=== PATIENT | female | born 1990 | race Caucasian/White ===

== ENCOUNTER 2020-12-31 09:32 | Outpatient (CLI) | payer MEDICARE, MEDICAID | END 2020-12-31 09:33 | disposition home or self-care (01) | LOC: CSHLAB 09:32 | PROVIDERS: ATTEND Obstetrics & Gynecology | DX: N80.9 Endometriosis, unspecified (principal); R10.2 Pelvic and perineal pain; Z53.9 Procedure and treatment not carried out, unspecified reason | CPT/HCPCS: 84703; 85027; 86850; 86900; 86901; 87635; U0003; U0005 ==

== ENCOUNTER 2021-01-05 06:00 | Inpatient (IN) | payer MEDICARE, MEDICAID ==
[2020-12-31 10:35] LABS: Hemoglobin 9.3 g/dL (12.0-15.5); Mean Corpuscular HGB CONC 28.7 g/dL (32.0-36.0); Mean Corpuscular Hemoglobin 21.6 pg (27.0-33.0); Mean Corpuscular Volume 75.3 fl (81.6-98.3); Mean Platelet Volume 10.2 fl (7.4-10.4); Platelet Count 336 10x3/uL (150-450); RBC Distribution Width 20.8 % (11.5-14.5); White Blood Cell (WBC) Count 7.3 10x3/uL (3.5-10.5)
[2020-12-31 10:44] LABS: BHCG - Serum Negative (NEGATIVE); Pregs Control Background? CLEAR/WHITE (CLR/WHITE); Pregs Control Bar Appear? YES (CONTROL BAR)
[2020-12-31 17:49] LABS: SARS-CoV-2 PCR by NAA Not Detected (NotDetected)
[2021-01-03 12:24] VITALS: BMI 36.4
[2021-01-05] MEDS ORDERED: Lidocaine 1% MPF 2 ML VIAL ONE (06:21)
[2021-01-05] MEDS ORDERED: Famotidine/PF 20 mg/2ml Vial ONE (06:21)
[2021-01-05] MEDS ORDERED: Gabapentin 300 MG CAP ONE (06:21)
[2021-01-05] MEDS ORDERED: Fentanyl 250 MCG/5 ML VIAL ONE (06:30)
[2021-01-05] MEDS ORDERED: PROPOFOL 20 ML ONE (06:30)
[2021-01-05] MEDS ORDERED: Midazolam HCl 2 mg/2 ml Vial ONE ×2 (06:30→07:23)
[2021-01-05] MEDS ORDERED: Ondansetron PF 4 MG/2 ML Vial ONE (06:31)
[2021-01-05] MEDS ORDERED: Dexamethasone 20 MG/5 ML VIAL ONE (06:31)
[2021-01-05] MEDS ORDERED: Rocuronium Bromide 10 MG/ML (10ML VIAL) ONE (06:31)
[2021-01-05] MEDS ORDERED: Lidocaine 1% PF 5 ML VIAL ONE (06:31)
[2021-01-05] MEDS ORDERED: Ketorolac Tromethamine 30 MG/ML VIAL ONE (06:31)
[2021-01-05] MEDS ORDERED: Glycopyrrolate 0.2 MG/ML 5 ML SYRINGE ONE (06:33)
[2021-01-05] MEDS ORDERED: Iopamidol 15 ML ONE (06:38)
[2021-01-05] MEDS ORDERED: Bupivacaine HCl 0.5%/Epinephrine 1:200,000/PF 30 ml Vial ONE (06:39)
[2021-01-05] MEDS ORDERED: Levofloxacin 500 mg/D5W 100 ml Premix Bag ONE (07:28)
[2021-01-05] MEDS ORDERED: ePHEDrine 50 MG/ML VIAL ONE (09:00)
[2021-01-05] MEDS ORDERED: Fentanyl 100 MCG/2 ML VIAL ONE ×3 (09:26→10:30)
[2021-01-05] MEDS ORDERED: Bisacodyl 10 MG SUPP PR PRN (09:49)
[2021-01-05] MEDS ORDERED: Ondansetron PF 4 MG/2 ML Vial IVP PRN (09:49)
[2021-01-05] MEDS ORDERED: HYDROcodone/Acetaminophen 5/325 mg Tablet PO PRN ×2 (09:49)
[2021-01-05] MEDS ORDERED: Simethicone Chewable 80 MG TAB PO PRN (09:49)
[2021-01-05] MEDS ORDERED: diphenhydrAMINE 25 MG CAP PO PRN (09:49)
[2021-01-05] MEDS ORDERED: Promethazine HCl 25 MG/ML VIAL IM PRN (09:49)
[2021-01-05] MEDS ORDERED: tiZANidine HCl 4 MG TAB PO PRN (09:51)
[2021-01-05] MEDS ORDERED: Ventolin HFA Inhaler 60 PUFF INHALER INH PRN (09:51)
[2021-01-05] MEDS ORDERED: Fioricet 325/50/40 mg Tablet PO PRN (09:51)
[2021-01-05] MEDS ORDERED: Prazosin HCl 1 MG CAP PO PRN (09:51)
[2021-01-05] MEDS: Sodium Chloride 0.9% 1,000 ML IV SCH ×2 (12:14→16:19)
[2021-01-05] MEDS ORDERED: SUVOREXANT 15 MG PO SCH (21:00)
[2021-01-05] MEDS ORDERED: SUVOREXANT PO SCH (21:00)
[2021-01-05] MEDS: Zolpidem Tartrate 5 MG TAB PO PRN (21:08)
[2021-01-05] MEDS: Gabapentin 300 MG CAP PO SCH (21:09)
[2021-01-05] MEDS: Topiramate 100 MG TAB PO SCH (21:13)
[2021-01-05] MEDS ORDERED: fentaNYL Citrate/PF 50 MCG/ML (20ML VIAL) ONE (23:55)
[2021-01-06] MEDS: fentaNYL Citrate/PF 1,000 MCG in Sodium Chloride 0.9% 30 ML IV PRN ×2 (00:08→16:41)
[2021-01-06] MEDS: Mometasone/Formoterol 60 PUFF AER INH SCH ×3 (00:34→20:10)
[2021-01-06] MEDS: Sodium Chloride 0.9% 1,000 ML IV SCH ×3 (05:57→16:00)
[2021-01-06 07:47] LABS: Hemoglobin 8.9 g/dL (12.0-15.5); Mean Corpuscular HGB CONC 28.5 g/dL (32.0-36.0); Mean Corpuscular Hemoglobin 21.2 pg (27.0-33.0); Mean Corpuscular Volume 74.5 fl (81.6-98.3); Mean Platelet Volume 10.4 fl (7.4-10.4); Platelet Count 317 10x3/uL (150-450); RBC Distribution Width 20.3 % (11.5-14.5); Red Blood Cell (RBC) Count 4.19 10x6/uL (3.90-5.03); White Blood Cell (WBC) Count 10.3 10x3/uL (3.5-10.5)
[2021-01-06] MEDS: FLUoxetine HCl 20 MG CAP PO SCH (08:57)
[2021-01-06] MEDS: Gabapentin 300 MG CAP PO SCH ×2 (08:58→21:15)
[2021-01-06] MEDS: Topiramate 100 MG TAB PO SCH ×2 (08:59→21:15)
[2021-01-06] MEDS ORDERED: Aripiprazole 10 MG TAB PO SCH (09:00)
[2021-01-06] MEDS ORDERED: Aripiprazole 2 MG TAB PO SCH (09:00)
[2021-01-06] MEDS ORDERED: Fioricet 325/50/40 mg Tablet PO SCH (09:30)
[2021-01-06] MEDS ORDERED: Albuterol Sulfate 2.5 mg/3 ml Neb NEB PRN (09:43)
[2021-01-06] MEDS: Acetaminophen 500 MG TAB PO SCH ×3 (10:26→21:16)
[2021-01-06] MEDS: Zolpidem Tartrate 5 MG TAB PO PRN (21:15)
[2021-01-07] MEDS: Sodium Chloride 0.9% 1,000 ML IV SCH ×2 (00:13→10:15)
[2021-01-07] MEDS: Mometasone/Formoterol 60 PUFF AER INH SCH ×2 (07:13→19:09)
[2021-01-07] MEDS: Acetaminophen 500 MG TAB PO SCH ×2 (07:35→10:15)
[2021-01-07] MEDS: Gabapentin 300 MG CAP PO SCH ×2 (08:12→21:45)
[2021-01-07] MEDS: Topiramate 100 MG TAB PO SCH ×2 (08:12→21:46)
[2021-01-07] MEDS: FLUoxetine HCl 20 MG CAP PO SCH (08:20)
[2021-01-07] MEDS: Aripiprazole 10 MG TAB PO SCH (08:21)
[2021-01-07] MEDS ORDERED: HYDROcodone/Acetaminophen 5/325 mg Tablet PO PRN (09:49)
[2021-01-07] MEDS: HYDROcodone/Acetaminophen 5/325 mg Tablet PO PRN ×3 (10:14→18:25)
[2021-01-07] MEDS ORDERED: HYDROcodone/Acetaminophen 10/325 mg Tablet PO PRN (20:21)
[2021-01-07] MEDS: HYDROcodone/Acetaminophen 10/325 mg Tablet PO PRN (22:34)
[2021-01-08] MEDS: HYDROcodone/Acetaminophen 10/325 mg Tablet PO PRN ×2 (05:05→09:12)
[2021-01-08] MEDS: Mometasone/Formoterol 60 PUFF AER INH SCH (07:20)
[2021-01-08] MEDS: FLUoxetine HCl 20 MG CAP PO SCH (08:34)
[2021-01-08] MEDS: Topiramate 100 MG TAB PO SCH (08:35)
[2021-01-08] MEDS: Aripiprazole 10 MG TAB PO SCH (08:36)
[2021-01-08] MEDS: Gabapentin 300 MG CAP PO SCH (08:37)
[2021-01-08 10:19] VITALS: BP 108/61; TEMP 98.6
== END 2021-01-08 10:00 | disposition home or self-care (01) | DRG 742 ==
LOC: CSHSDC 06:00 → CSHPP 09:48 → OBSVTOIN 09:49 → UNDOADMOB 10:00 → CSHPP 10:00
PROVIDERS: ADMIT Obstetrics & Gynecology; ATTEND Obstetrics & Gynecology
PROC: 0UT90ZZ Resection of Uterus, Open Approach (ICD-10-PCS; principal; 2021-01-05)
PROC: 0UT70ZZ Resection of Bilateral Fallopian Tubes, Open Approach (ICD-10-PCS; 2021-01-05)
PROC: 0T778DZ Dilation of Left Ureter with Intraluminal Device, Via Natural or Artificial Opening Endoscopic (ICD-10-PCS; 2021-01-05)
PROC: BT1FZZZ Fluoroscopy of Left Kidney, Ureter and Bladder (ICD-10-PCS; 2021-01-05)
DX: N80.0 Endometriosis of uterus (principal); Q60.0 Renal agenesis, unilateral; N94.6 Dysmenorrhea, unspecified; Z20.822 Contact with and (suspected) exposure to COVID-19; K66.0 Peritoneal adhesions (postprocedural) (postinfection); Z88.0 Allergy status to penicillin; Z88.5 Allergy status to narcotic agent; Z79.899 Other long term (current) drug therapy; Z87.891 Personal history of nicotine dependence; G40.909 Epilepsy, unspecified, not intractable, without status epilepticus
CPT/HCPCS: 36415; 84703; 85027; 86850; 86900; 86901; 87635; 88307; 94664; C2625; J1100; J1885; J1956; J2250; J2405; J2704; J3010; J3490; Q9967; S0028; U0003; U0005

== ENCOUNTER 2021-01-18 13:28 | Emergency (ER) | payer MEDICARE, MEDICAID ==
[2021-01-18] MEDS ORDERED: Ondansetron PF 4 MG/2 ML Vial ONE (14:16)
[2021-01-18] MEDS ORDERED: Morphine 4 MG/ML VIAL ONE (14:16)
[2021-01-18 15:03] LABS: Bilirubin Neg (Negative); Blood, Urine 250 (Negative); Clarity Slightly Cloudy (Clear); Glucose, Urine (Dipstick) Normal (Negative); Ketone, Urine 15 mg/dL (Negative); Leukocyte 25 (Negative); Nitrite Negative (Negative); Protein, Urine (Dipstick) 15 mg/dl (Neg-Trace); Specific Gravity, Urine 1.005 (1.002-1.036); Urobilinogen Normal mg/dL (Less than 2)
[2021-01-18 15:04] LABS: #Basophils 0.1 10x3/uL (0.0-0.2); #Eosinphils 0.3 10x3/uL (0.0-0.5); #Monocytes 0.5 10x3/uL (0.0-1.1); #Neutrophils 7.3 10x3/uL (1.5-8.4); %Basophils 0.6 % (0.0-2.0); %Lymphocytes 20.3 % (18.0-47.0); %Monocytes 5.2 % (0.0-10.0); %Neutrophils 70.3 % (40.0-75.0); Hemoglobin 8.7 g/dL (12.0-15.5); Mean Corpuscular HGB CONC 28.8 g/dL (32.0-36.0); Mean Corpuscular Hemoglobin 21.2 pg (27.0-33.0); Mean Corpuscular Volume 73.5 fl (81.6-98.3); Platelet Count 479 10x3/uL (150-450); RBC Distribution Width 20.5 % (11.5-14.5); Red Blood Cell (RBC) Count 4.11 10x6/uL (3.90-5.03); White Blood Cell (WBC) Count 10.3 10x3/uL (3.5-10.5)
[2021-01-18 15:06] LABS: ALT (SGPT) 9 U/L (8-55); AST (SGOT) 6 U/L (5-34); Albumin 3.5 g/dL (3.5-5.0); Alkaline Phosphatase 87 U/L (40-110); Anion Gap 15 mmol/L (10-20); BUN (Urea Nitrogen) 10 mg/dL (7.0-18.7); Bilirubin, Total 0.2 mg/dL (0.2-1.2); Calc. Creatinine Clearance 0 mL/min (70-130); Calcium 8.7 mg/dL (7.8-10.44); Carbon Dioxide 23 mmol/L (22-29); Chloride 106 mmol/L (98-107); Globulin 3.1 g/dL (2.4-3.5); Glucose 87 mg/dL (70-105); Potassium 3.7 mmol/L (3.5-5.1); Protein, Total 6.6 g/dL (6.0-8.3); Sodium 140 mmol/L (136-145)
[2021-01-18] MEDS ORDERED: Fentanyl 100 MCG/2 ML VIAL ONE ×2 (15:23→16:46)
[2021-01-18 15:35] LABS: Bacteria/HPF 2+ HPF (None Seen); RBC/HPF 0-3 HPF (0-3); WBC/HPF 0-3 HPF (0-3)
[2021-01-18] MEDS ORDERED: Lorazepam 2 MG/ML VIAL ONE (16:15)
== END 2021-01-18 16:57 | disposition home or self-care (01) ==
LOC: CSHERS 13:28
DX: G89.18 Other acute postprocedural pain (principal); R10.12 Left upper quadrant pain; D72.829 Elevated white blood cell count, unspecified; J45.909 Unspecified asthma, uncomplicated; Z87.891 Personal history of nicotine dependence
CPT/HCPCS: 36415; 80053; 81003; 81015; 83605; 85025; 86850; 86900; 86901; 87086; 94760; 96374; 96375; 96376; J2060; J2270; J2405; J3010

== ENCOUNTER 2021-07-09 08:50 | Emergency (ER) | payer MEDICARE, MEDICAID | END 2021-07-09 10:00 | disposition home or self-care (01) | LOC: CSHERS 08:50 | DX: T82.9XXA Unspecified complication of cardiac and vascular prosthetic device, implant and graft, initial encounter (principal); R10.9 Unspecified abdominal pain; G89.29 Other chronic pain; J45.909 Unspecified asthma, uncomplicated | CPT/HCPCS: 99283 ==

== ENCOUNTER 2021-08-02 21:18 | Emergency (ER) | payer MEDICARE, MEDICAID ==
[2021-08-02 21:51] LABS: Bilirubin Neg (Negative); Blood, Urine Negative (Negative); Clarity Clear (Clear); Glucose, Urine (Dipstick) Normal (Negative); Ketone, Urine Negative (Negative); Leukocyte Negative (Negative); Nitrite Negative (Negative); Protein, Urine (Dipstick) Negative (Neg-Trace); Urobilinogen Normal mg/dL (Less than 2)
[2021-08-02 21:54] LABS: Pregnancy Test - Urine (BHCG) Negative (Negative); Pregu Control Background? CLEAR/WHITE (CLR/WHITE); Pregu Control Bar Appear? YES (CONTROL BAR)
[2021-08-02] MEDS ORDERED: Ondansetron ODT 4 MG TAB ONE (22:04)
[2021-08-02 22:12] LABS: #Basophils 0.1 10x3/uL (0.0-0.2); #Eosinphils 0.4 10x3/uL (0.0-0.5); #Monocytes 0.9 10x3/uL (0.0-1.1); #Neutrophils 5.1 10x3/uL (1.5-8.4); %Basophils 0.7 % (0.0-2.0); %Eosinophils 3.9 % (0.0-6.0); %Monocytes 8.9 % (0.0-10.0); %Neutrophils 52.3 % (40.0-75.0); Hemoglobin 8.8 g/dL (12.0-15.5); Mean Corpuscular HGB CONC 28.9 g/dL (32.0-36.0); Mean Corpuscular Hemoglobin 21.8 pg (27.0-33.0); Mean Corpuscular Volume 75.2 fl (81.6-98.3); Mean Platelet Volume 10.1 fl (7.4-10.4); Platelet Count 313 10x3/uL (150-450); Red Blood Cell (RBC) Count 4.04 10x6/uL (3.90-5.03); White Blood Cell (WBC) Count 9.7 10x3/uL (3.5-10.5)
[2021-08-02 22:22] LABS: ALT (SGPT) 7 U/L (8-55); AST (SGOT) 8 U/L (5-34); Albumin 3.5 g/dL (3.5-5.0); Alkaline Phosphatase 56 U/L (40-110); Anion Gap 13 mmol/L (10-20); BUN (Urea Nitrogen) 12 mg/dL (7.0-18.7); Bilirubin, Total 0.2 mg/dL (0.2-1.2); Calc. Creatinine Clearance 0 mL/min (70-130); Calcium 9.1 mg/dL (7.8-10.44); Carbon Dioxide 27 mmol/L (22-29); Chloride 103 mmol/L (98-107); Globulin 2.8 g/dL (2.4-3.5); Glucose 95 mg/dL (70-105); Potassium 3.9 mmol/L (3.5-5.1); Protein, Total 6.3 g/dL (6.0-8.3); Sodium 139 mmol/L (136-145)
[2021-08-02 22:33] LABS: Hypochromia SLIGHT = 6-15 cells (100X) (0-5/hpf); Platelet Morphology Comment Appears Adequate; Polychromasia SLIGHT = 2-3 cells (100X) (0-2/hpf)
== END 2021-08-02 22:52 | disposition home or self-care (01) ==
LOC: CSHERS 21:18
DX: R10.9 Unspecified abdominal pain (principal); R11.2 Nausea with vomiting, unspecified; R30.0 Dysuria; J45.909 Unspecified asthma, uncomplicated; Z79.899 Other long term (current) drug therapy
CPT/HCPCS: 36415; 74176; 80053; 81003; 81025; 85025; 96372; J0500; Q0162

== ENCOUNTER 2021-08-10 21:56 | Emergency (ER) | payer MEDICARE, MEDICAID ==
[2021-08-10] MEDS ORDERED: Morphine 4 MG/ML VIAL ONE (23:33)
[2021-08-10] MEDS ORDERED: Diazepam 5 MG TAB ONE (23:34)
== END 2021-08-10 23:56 | disposition home or self-care (01) ==
LOC: CSHERS 21:56
DX: M54.9 Dorsalgia, unspecified (principal); J45.909 Unspecified asthma, uncomplicated
CPT/HCPCS: 96374; J2270

== ENCOUNTER 2021-09-17 04:40 | Emergency (ER) | payer MEDICARE, OTHER ==
[2021-09-17] MEDS ORDERED: Morphine 4 MG/ML VIAL ONE ×2 (05:57→07:29)
[2021-09-17] MEDS ORDERED: Ondansetron PF 4 MG/2 ML Vial ONE (05:58)
[2021-09-17] MEDS ORDERED: Pantoprazole 40 MG VIAL ONE (05:58)
[2021-09-17] MEDS ORDERED: Famotidine/PF 20 mg/2ml Vial ONE (05:59)
[2021-09-17 06:32] LABS: #Basophils 0.1 10x3/uL (0.0-0.2); #Eosinphils 0.2 10x3/uL (0.0-0.5); #Monocytes 0.5 10x3/uL (0.0-1.1); #Neutrophils 2.4 10x3/uL (1.5-8.4); %Basophils 1.3 % (0.0-2.0); %Eosinophils 3.9 % (0.0-6.0); %Lymphocytes 42.2 % (18.0-47.0); %Monocytes 9.3 % (0.0-10.0); %Neutrophils 43.1 % (40.0-75.0); Hemoglobin 9.5 g/dL (12.0-15.5); Mean Corpuscular HGB CONC 28.9 g/dL (32.0-36.0); Mean Corpuscular Volume 72.8 fl (81.6-98.3); Mean Platelet Volume 9.6 fl (7.4-10.4); Platelet Count 281 10x3/uL (150-450); RBC Distribution Width 17.3 % (11.5-14.5); Red Blood Cell (RBC) Count 4.52 10x6/uL (3.90-5.03); White Blood Cell (WBC) Count 5.6 10x3/uL (3.5-10.5)
[2021-09-17 06:33] LABS: ALT (SGPT) 15 U/L (8-55); AST (SGOT) 17 U/L (5-34); Albumin 3.6 g/dL (3.5-5.0); Alkaline Phosphatase 86 U/L (40-110); Anion Gap 16 mmol/L (10-20); BUN (Urea Nitrogen) 12 mg/dL (7.0-18.7); Bilirubin, Total 0.3 mg/dL (0.2-1.2); Calc. Creatinine Clearance 0 mL/min (70-130); Calcium 9.8 mg/dL (7.8-10.44); Carbon Dioxide 26 mmol/L (22-29); Chloride 104 mmol/L (98-107); Globulin 3.2 g/dL (2.4-3.5); Glucose 93 mg/dL (70-105); Lipase 29 U/L (8-78); Potassium 3.7 mmol/L (3.5-5.1); Protein, Total 6.8 g/dL (6.0-8.3); Sodium 142 mmol/L (136-145)
[2021-09-17 06:45] LABS: BHCG - Serum Negative (NEGATIVE); Pregs Control Background? CLEAR/WHITE (CLR/WHITE); Pregs Control Bar Appear? YES (CONTROL BAR)
[2021-09-17 06:53] LABS: Hypochromia SLIGHT = 6-15 cells (100X) (0-5/hpf); Platelet Morphology Comment Appears Adequate
== END 2021-09-17 07:49 | disposition home or self-care (01) ==
LOC: CSHERS 04:40
DX: R10.13 Epigastric pain (principal); J45.909 Unspecified asthma, uncomplicated
CPT/HCPCS: 80053; 83690; 84703; 85025; 96374; 96375; 96376; C9113; J1642; J2270; J2405; S0028

== ENCOUNTER 2022-10-17 20:19 | Inpatient (IN) | payer MEDICARE, SELFPAY ==
[2022-10-17 20:48] VITALS: BMI 28.0
[2022-10-17] MEDS ORDERED: Senokot S 8.6-50 MG TAB PO PRN (21:54)
[2022-10-17] MEDS ORDERED: Bisacodyl 10 MG SUPP PR PRN (21:54)
[2022-10-17] MEDS ORDERED: Pantoprazole 40 MG VIAL IVP SCH (22:00)
[2022-10-17] MEDS ORDERED: Morphine 2 MG/ML VIAL SLOW IVP PRN (22:10)
[2022-10-17] MEDS ORDERED: SUMAtriptan Succinate 50 MG TAB PO PRN (22:13)
[2022-10-17] MEDS ORDERED: FLUoxetine HCl 20 MG CAP PO SCH (22:15)
[2022-10-17] MEDS: Morphine 4 MG/ML VIAL SLOW IVP PRN (22:18)
[2022-10-17] MEDS: Sucralfate 1 GM TAB PO SCH (22:23)
[2022-10-17] MEDS: Ondansetron PF 4 MG/2 ML Vial IVP PRN (22:28)
[2022-10-17 22:55] LABS: Hemoglobin 7.9 g/dL (12.0-15.5)
[2022-10-17 23:08] LABS: Magnesium 1.4 mg/dL (1.6-2.6)
[2022-10-17] MEDS: Potassium Chloride 20 MEQ in Lactated Ringer's 1,000 ML IV SCH (23:26)
[2022-10-18] MEDS ORDERED: FLU VACC QS2022-23(6MOS UP)/PF 60 MCG/0.5 ML SYRINGE IM ONE (01:45)
[2022-10-18] MEDS: Morphine 4 MG/ML VIAL SLOW IVP PRN ×5 (04:06→22:05)
[2022-10-18] MEDS: Sucralfate 1 GM TAB PO SCH ×5 (04:06→21:44)
[2022-10-18 05:39] LABS: Anion Gap 11 mmol/L (10-20); BUN (Urea Nitrogen) 5 mg/dL (7.0-18.7); Calc. Creatinine Clearance 92 mL/min (70-130); Calcium 8.1 mg/dL (7.8-10.44); Carbon Dioxide 25 mmol/L (22-29); Chloride 111 mmol/L (98-107); Estimated GFR 70; Glucose 81 mg/dL (70-105); Potassium 3.8 mmol/L (3.5-5.1); Sodium 143 mmol/L (136-145)
[2022-10-18 05:40] LABS: #Eosinphils 0.3 10x3/uL (0.0-0.5); #Monocytes 0.5 10x3/uL (0.0-1.1); #Neutrophils 1.5 10x3/uL (1.5-8.4); %Basophils 0.7 % (0.0-2.0); %Eosinophils 6.1 % (0.0-6.0); %Lymphocytes 48.7 % (18.0-47.0); %Monocytes 10.3 % (0.0-10.0); Hemoglobin 8.1 g/dL (12.0-15.5); Mean Corpuscular HGB CONC 29.5 g/dL (32.0-36.0); Mean Corpuscular Hemoglobin 21.7 pg (27.0-33.0); Mean Corpuscular Volume 73.5 fl (81.6-98.3); Platelet Count 225 10x3/uL (150-450); Red Blood Cell (RBC) Count 3.74 10x6/uL (3.90-5.03); White Blood Cell (WBC) Count 4.5 10x3/uL (3.5-10.5)
[2022-10-18 06:10] LABS: Anisocytosis SLIGHT = 6-15 cells (100X) (0-5/hpf); Hypochromia SLIGHT = 6-15 cells (100X) (0-5/hpf); Platelet Morphology Comment Appears Adequate
[2022-10-18] MEDS: Pantoprazole 40 MG VIAL IVP SCH ×2 (08:51→21:42)
[2022-10-18] MEDS: Sertraline 100 MG TAB PO SCH (08:52)
[2022-10-18] MEDS: Aripiprazole 10 MG TAB PO SCH ×2 (08:52→21:00)
[2022-10-18] MEDS: Topiramate 25 MG TAB PO SCH ×2 (08:52→21:00)
[2022-10-18] MEDS: FLUoxetine HCl 20 MG CAP PO SCH (08:52)
[2022-10-18] MEDS ORDERED: Magnesium 2 GM/50 ML(in water) 2 GM in Premix Bag 1 BAG IVPB SCH (10:00)
[2022-10-18] MEDS: Potassium Chloride 20 MEQ in Lactated Ringer's 1,000 ML IV SCH (10:12)
[2022-10-19] MEDS: Potassium Chloride 20 MEQ in Lactated Ringer's 1,000 ML IV SCH ×3 (01:18→16:41)
[2022-10-19] MEDS: Sucralfate 1 GM TAB PO SCH ×4 (04:30→22:08)
[2022-10-19] MEDS: Morphine 4 MG/ML VIAL SLOW IVP PRN ×5 (05:02→21:27)
[2022-10-19] MEDS ORDERED: Pantoprazole 40 MG VIAL ONE (08:36)
[2022-10-19] MEDS: Topiramate 25 MG TAB PO SCH ×2 (09:10→21:27)
[2022-10-19] MEDS: FLUoxetine HCl 20 MG CAP PO SCH (09:11)
[2022-10-19] MEDS: Pantoprazole 40 MG VIAL IVP SCH ×2 (09:15→21:27)
[2022-10-19] MEDS: Sertraline 100 MG TAB PO SCH (09:15)
[2022-10-19] MEDS: Aripiprazole 10 MG TAB PO SCH ×2 (09:16→21:27)
[2022-10-19] MEDS ORDERED: PROPOFOL 20 ML ONE ×2 (15:25→15:36)
[2022-10-19] MEDS: Ondansetron PF 4 MG/2 ML Vial IVP PRN (18:37)
[2022-10-20] MEDS: Sucralfate 1 GM TAB PO SCH ×3 (04:07→15:10)
[2022-10-20] MEDS: Morphine 4 MG/ML VIAL SLOW IVP PRN ×3 (04:07→13:14)
[2022-10-20] MEDS: Potassium Chloride 20 MEQ in Lactated Ringer's 1,000 ML IV SCH ×3 (07:34→15:09)
[2022-10-20] MEDS: Sertraline 100 MG TAB PO SCH (09:56)
[2022-10-20] MEDS: Aripiprazole 10 MG TAB PO SCH (09:56)
[2022-10-20] MEDS: Pantoprazole 40 MG VIAL IVP SCH (09:56)
[2022-10-20] MEDS: Topiramate 25 MG TAB PO SCH (09:56)
[2022-10-20] MEDS: FLUoxetine HCl 20 MG CAP PO SCH (09:56)
[2022-10-20] MEDS: Ondansetron PF 4 MG/2 ML Vial IVP PRN (13:14)
[2022-10-20 16:36] VITALS: BP 119/76; TEMP 97.9
[2022-10-20] MEDS ORDERED: Lansoprazole 3 MG/ML ORAL SUSPENSION PER TUBE SCH (21:00)
== END 2022-10-20 18:00 | disposition home or self-care (01) | DRG 381 ==
LOC: CSHTELE 20:19 → INTOOBSV 20:19 → OBSVTOIN 10-19 16:35
PROVIDERS: ADMIT Internal Medicine; ATTEND Internal Medicine
PROC: 0D768ZZ Dilation of Stomach, Via Natural or Artificial Opening Endoscopic (ICD-10-PCS; principal; 2022-10-19)
PROC: 0D7A8ZZ Dilation of Jejunum, Via Natural or Artificial Opening Endoscopic (ICD-10-PCS; 2022-10-19)
DX: K28.9 Gastrojejunal ulcer, unspecified as acute or chronic, without hemorrhage or perforation (principal); K91.89 Other postprocedural complications and disorders of digestive system; G89.4 Chronic pain syndrome; F43.10 Post-traumatic stress disorder, unspecified; J45.909 Unspecified asthma, uncomplicated; G40.909 Epilepsy, unspecified, not intractable, without status epilepticus; F11.11 Opioid abuse, in remission; D50.9 Iron deficiency anemia, unspecified; K31.89 Other diseases of stomach and duodenum; Z90.49 Acquired absence of other specified parts of digestive tract; Z90.5 Acquired absence of kidney; Z98.84 Bariatric surgery status; Z98.890 Other specified postprocedural states; Z90.710 Acquired absence of both cervix and uterus; Z88.8 Allergy status to other drugs, medicaments and biological substances; Z88.0 Allergy status to penicillin; Z88.1 Allergy status to other antibiotic agents; Z98.2 Presence of cerebrospinal fluid drainage device; Z88.6 Allergy status to analgesic agent; Z79.899 Other long term (current) drug therapy; Z98.51 Tubal ligation status; Z87.11 Personal history of peptic ulcer disease; Z91.018 Allergy to other foods; F32.A Depression, unspecified; Y83.8 Other surgical procedures as the cause of abnormal reaction of the patient, or of later complication, without mention of misadventure at the time of the procedure
CPT/HCPCS: 74240; 80048; 83735; 85025; 86850; 86900; 86901; 96374; 96375; 96376; C9113; G0378; J2270; J2405; J2704; J3475; J3480; J7120

== ENCOUNTER 2022-10-24 15:09 | Emergency (ER) | payer MEDICARE, OTHER, SELFPAY ==
[2022-10-24 16:21] LABS: #Eosinphils 0.1 10x3/uL (0.0-0.5); #Monocytes 0.4 10x3/uL (0.0-1.1); #Neutrophils 4.8 10x3/uL (1.5-8.4); %Basophils 0.4 % (0.0-2.0); %Eosinophils 0.7 % (0.0-6.0); %Lymphocytes 28.9 % (18.0-47.0); %Monocytes 5.3 % (0.0-10.0); %Neutrophils 64.4 % (40.0-75.0); Hemoglobin 9.6 g/dL (12.0-15.5); Mean Corpuscular HGB CONC 29.5 g/dL (32.0-36.0); Mean Corpuscular Hemoglobin 21.8 pg (27.0-33.0); Mean Corpuscular Volume 73.9 fl (81.6-98.3); Mean Platelet Volume 10.2 fl (7.4-10.4); Platelet Count 307 10x3/uL (150-450); RBC Distribution Width 23.9 % (11.5-14.5); White Blood Cell (WBC) Count 7.4 10x3/uL (3.5-10.5)
[2022-10-24 17:16] LABS: ALT (SGPT) 14 U/L (8-55); AST (SGOT) 16 U/L (5-34); Albumin 3.1 g/dL (3.5-5.0); Alkaline Phosphatase 98 U/L (40-110); Anion Gap 15 mmol/L (10-20); BUN (Urea Nitrogen) 23 mg/dL (7.0-18.7); Bilirubin, Total 0.1 mg/dL (0.2-1.2); Calc. Creatinine Clearance 0 mL/min (70-130); Calcium 8.4 mg/dL (7.8-10.44); Carbon Dioxide 20 mmol/L (22-29); Chloride 110 mmol/L (98-107); Estimated GFR 83; Globulin 2.8 g/dL (2.4-3.5); Glucose 86 mg/dL (70-105); Potassium 4.6 mmol/L (3.5-5.1); Protein, Total 5.9 g/dL (6.0-8.3); Sodium 140 mmol/L (136-145)
[2022-10-24] MEDS ORDERED: Haloperidol Lactate 5 MG/ML VIAL ONE (17:25)
[2022-10-24] MEDS ORDERED: Lorazepam 2 MG/ML VIAL ONE (17:26)
== END 2022-10-24 19:36 | disposition home or self-care (01) ==
LOC: CSHERS 15:09
DX: G43.909 Migraine, unspecified, not intractable, without status migrainosus (principal); Z87.891 Personal history of nicotine dependence
CPT/HCPCS: 70450; 80053; 84146; 85025; 96374; 96375; J1630; J1642; J2060

== ENCOUNTER 2023-02-25 07:40 | Inpatient (IN) | payer MEDICARE, MEDICAID ==
[2023-02-25] MEDS ORDERED: Ondansetron PF 4 MG/2 ML Vial IVP PRN (09:01)
[2023-02-25] MEDS: cefTRIAXone\\ROCEPHIN 1 GM in Sodium Chloride 0.9% 100 ML IVPB SCH (09:39)
[2023-02-25] MEDS: Pantoprazole 40 MG VIAL IVP SCH ×2 (09:40→21:50)
[2023-02-25] MEDS: Sodium Chloride 0.9% 1,000 ML IV SCH ×2 (09:40→18:45)
[2023-02-25] MEDS: Morphine 4 MG/ML VIAL SLOW IVP PRN ×2 (10:47→16:24)
[2023-02-25 13:12] VITALS: BMI 28.8
[2023-02-25 17:20] LABS: #Eosinphils 0.2 10x3/uL (0.0-0.5); #Monocytes 0.8 10x3/uL (0.0-1.1); #Neutrophils 3.1 10x3/uL (1.5-8.4); %Basophils 0.6 % (0.0-2.0); %Eosinophils 2.8 % (0.0-6.0); %Lymphocytes 33.8 % (18.0-47.0); %Monocytes 12.2 % (0.0-10.0); %Neutrophils 50.4 % (40.0-75.0); Hemoglobin 8.4 g/dL (12.0-15.5); Mean Corpuscular HGB CONC 28.4 g/dL (32.0-36.0); Mean Corpuscular Hemoglobin 19.8 pg (27.0-33.0); Mean Corpuscular Volume 69.8 fl (81.6-98.3); Mean Platelet Volume 9.8 fl (7.4-10.4); Platelet Count 297 10x3/uL (150-450); RBC Distribution Width 19.3 % (11.5-14.5); Red Blood Cell (RBC) Count 4.24 10x6/uL (3.90-5.03); White Blood Cell (WBC) Count 6.2 10x3/uL (3.5-10.5)
[2023-02-25 17:26] LABS: ALT (SGPT) 38 U/L (8-55); AST (SGOT) 42 U/L (5-34); Albumin 3.3 g/dL (3.5-5.0); Alkaline Phosphatase 90 U/L (40-110); Anion Gap 11 mmol/L (10-20); BUN (Urea Nitrogen) 9 mg/dL (7.0-18.7); Bilirubin, Total 0.2 mg/dL (0.2-1.2); Calc. Creatinine Clearance 107 mL/min (70-130); Calcium 8.3 mg/dL (7.8-10.44); Carbon Dioxide 25 mmol/L (22-29); Chloride 109 mmol/L (98-107); Estimated GFR 80; Globulin 2.4 g/dL (2.4-3.5); Glucose 89 mg/dL (70-105); Potassium 4.3 mmol/L (3.5-5.1); Protein, Total 5.7 g/dL (6.0-8.3); Sodium 141 mmol/L (136-145)
[2023-02-25 19:16] LABS: Anisocytosis SLIGHT = 6-15 cells (100X) (0-5/hpf); Elliptocytes SLIGHT = 2-5 cells (100X) (0-1/hpf); Hypochromia SLIGHT = 6-15 cells (100X) (0-5/hpf); Microcytosis SLIGHT = 6-15 cells (100X) (0-5/hpf); Platelet Adequacy Comment Appears Adequate
[2023-02-26] MEDS: Sodium Chloride 0.9% 1,000 ML IV SCH ×3 (02:27→17:50)
[2023-02-26 04:20] LABS: #Eosinphils 0.2 10x3/uL (0.0-0.5); #Monocytes 0.6 10x3/uL (0.0-1.1); #Neutrophils 3.1 10x3/uL (1.5-8.4); %Basophils 0.7 % (0.0-2.0); %Eosinophils 3.9 % (0.0-6.0); %Lymphocytes 26.3 % (18.0-47.0); %Monocytes 10.8 % (0.0-10.0); %Neutrophils 57.9 % (40.0-75.0); Hemoglobin 8.3 g/dL (12.0-15.5); Mean Corpuscular HGB CONC 28.5 g/dL (32.0-36.0); Mean Corpuscular Hemoglobin 19.9 pg (27.0-33.0); Mean Corpuscular Volume 69.8 fl (81.6-98.3); Mean Platelet Volume 10.3 fl (7.4-10.4); Platelet Count 304 10x3/uL (150-450); RBC Distribution Width 18.9 % (11.5-14.5); Red Blood Cell (RBC) Count 4.17 10x6/uL (3.90-5.03); White Blood Cell (WBC) Count 5.4 10x3/uL (3.5-10.5)
[2023-02-26 04:45] LABS: Anion Gap 13 mmol/L (10-20); BUN (Urea Nitrogen) 7 mg/dL (7.0-18.7); Calc. Creatinine Clearance 121 mL/min (70-130); Calcium 8.6 mg/dL (7.8-10.44); Carbon Dioxide 22 mmol/L (22-29); Chloride 109 mmol/L (98-107); Estimated GFR 93; Glucose 94 mg/dL (70-105); Iron 25 ug/dL (50-170); Iron Binding Capacity, Total 340 mcg/dL (265-497); Potassium 4.5 mmol/L (3.5-5.1); Sodium 139 mmol/L (136-145)
[2023-02-26 04:58] LABS: Ferritin 5.32 ng/mL (10-291)
[2023-02-26 05:07] LABS: Hypochromia SLIGHT = 6-15 cells (100X) (0-5/hpf); Microcytosis SLIGHT = 6-15 cells (100X) (0-5/hpf); Platelet Adequacy Comment Appears Adequate
[2023-02-26] MEDS: Morphine 4 MG/ML VIAL SLOW IVP PRN ×4 (06:49→17:47)
[2023-02-26] MEDS: tiZANidine HCl 4 MG TAB PO PRN ×2 (08:56→17:49)
[2023-02-26] MEDS: Acetaminophen 325 MG TAB PO PRN ×2 (08:57→21:06)
[2023-02-26] MEDS: Divalproex Sodium DR 500 MG TAB PO SCH ×2 (08:57→21:06)
[2023-02-26] MEDS: Aripiprazole 10 MG TAB PO SCH (08:57)
[2023-02-26] MEDS: Pantoprazole 40 MG VIAL IVP SCH ×2 (08:59→21:06)
[2023-02-26] MEDS: cefTRIAXone\\ROCEPHIN 1 GM in Sodium Chloride 0.9% 100 ML IVPB SCH (09:05)
[2023-02-26] MEDS ORDERED: PROPOFOL 20 ML ONE ×2 (13:11→13:29)
[2023-02-26] MEDS ORDERED: Midazolam HCl 2 mg/2 ml Vial ONE (13:11)
[2023-02-26] MEDS ORDERED: Ondansetron PF 4 MG/2 ML Vial ONE (13:59)
[2023-02-26] MEDS ORDERED: Iron Sucrose Complex 200 MG in Sodium Chloride 0.9% 100 ML IVPB SCH (14:15)
[2023-02-26] MEDS ORDERED: Iron, Sodium Ferric Gluconate 250 MG in Sodium Chloride 0.9% 250 ML 250 ML IVPB SCH (14:30)
[2023-02-26] MEDS ORDERED: FLUoxetine HCl 20 MG CAP PO SCH (21:00)
[2023-02-27] MEDS: Sodium Chloride 0.9% 1,000 ML IV SCH (03:43)
[2023-02-27] MEDS: Morphine 4 MG/ML VIAL SLOW IVP PRN ×2 (04:43→08:28)
[2023-02-27] MEDS: Acetaminophen 325 MG TAB PO PRN (06:49)
[2023-02-27] MEDS: tiZANidine HCl 4 MG TAB PO PRN (06:49)
[2023-02-27 08:17] VITALS: BP 123/71; TEMP 97.5
[2023-02-27 08:27] LABS: #Eosinphils 0.2 10x3/uL (0.0-0.5); #Monocytes 0.4 10x3/uL (0.0-1.1); %Basophils 0.6 % (0.0-2.0); %Eosinophils 3.2 % (0.0-6.0); %Lymphocytes 24.3 % (18.0-47.0); %Monocytes 6.8 % (0.0-10.0); %Neutrophils 64.5 % (40.0-75.0); Hemoglobin 8.9 g/dL (12.0-15.5); Mean Corpuscular HGB CONC 27.9 g/dL (32.0-36.0); Mean Corpuscular Hemoglobin 19.9 pg (27.0-33.0); Mean Corpuscular Volume 71.4 fl (81.6-98.3); Platelet Count 358 10x3/uL (150-450); RBC Distribution Width 18.6 % (11.5-14.5); Red Blood Cell (RBC) Count 4.47 10x6/uL (3.90-5.03); White Blood Cell (WBC) Count 6.2 10x3/uL (3.5-10.5)
[2023-02-27] MEDS: cefTRIAXone\\ROCEPHIN 1 GM in Sodium Chloride 0.9% 100 ML IVPB SCH (08:30)
[2023-02-27] MEDS: Divalproex Sodium DR 500 MG TAB PO SCH (08:30)
[2023-02-27] MEDS: Aripiprazole 10 MG TAB PO SCH (08:30)
== END 2023-02-27 10:20 | disposition home or self-care (01) | DRG 378 ==
LOC: CSHTELE 07:40
PROVIDERS: ADMIT Internal Medicine; ATTEND Internal Medicine
PROC: 0W3P8ZZ Control Bleeding in Gastrointestinal Tract, Via Natural or Artificial Opening Endoscopic (ICD-10-PCS; principal; 2023-02-26)
DX: K31.811 Angiodysplasia of stomach and duodenum with bleeding (principal); D62 Acute posthemorrhagic anemia; K22.10 Ulcer of esophagus without bleeding; F31.9 Bipolar disorder, unspecified; F43.10 Post-traumatic stress disorder, unspecified; J45.909 Unspecified asthma, uncomplicated; N80.9 Endometriosis, unspecified; Z91.018 Allergy to other foods; Z88.1 Allergy status to other antibiotic agents; Z88.6 Allergy status to analgesic agent; Z88.8 Allergy status to other drugs, medicaments and biological substances; Z88.0 Allergy status to penicillin; Z79.891 Long term (current) use of opiate analgesic; Z79.899 Other long term (current) drug therapy; Z90.49 Acquired absence of other specified parts of digestive tract; Z90.5 Acquired absence of kidney; Z98.84 Bariatric surgery status; Z98.890 Other specified postprocedural states; Z98.51 Tubal ligation status; Z90.710 Acquired absence of both cervix and uterus; Z86.61 Personal history of infections of the central nervous system; Z86.73 Personal history of transient ischemic attack (TIA), and cerebral infarction without residual deficits; F17.210 Nicotine dependence, cigarettes, uncomplicated; K25.9 Gastric ulcer, unspecified as acute or chronic, without hemorrhage or perforation; G40.909 Epilepsy, unspecified, not intractable, without status epilepticus
CPT/HCPCS: 36415; 80048; 82607; 82728; 83540; 83550; 84425; 85025; 86850; 86900; 86901; C9113; J0696; J1642; J2250; J2270; J2405; J2704; J2916; J3490; J7050

== ENCOUNTER 2024-02-14 09:05 | Emergency (ER) | payer MEDICAID, MEDICARE ==
[2024-02-14] MEDS ORDERED: Ondansetron PF 4 MG/2 ML Vial ONE (09:35)
[2024-02-14] MEDS ORDERED: HYDROmorphone 0.5 MG/0.5 ML SYRINGE ONE (09:35)
[2024-02-14] MEDS ORDERED: Pantoprazole 40 MG VIAL ONE (09:35)
[2024-02-14] MEDS ORDERED: Famotidine/PF 20 mg/2ml Vial ONE (09:54)
[2024-02-14 10:43] LABS: #Eosinphils 0.23 10x3/uL (0.0-0.5); #Monocytes 0.61 10x3/uL (0.0-1.1); #Neutrophils 6.37 10x3/uL (1.5-8.4); %Basophils 1.1 % (0.0-2.0); %Eosinophils 2.6 % (0.0-6.0); %Lymphocytes 17.3 % (18.0-47.0); %Monocytes 6.9 % (0.0-10.0); %Neutrophils 71.7 % (40.0-75.0); Hematocrit 44.3 % (34.9-44.5); Hemoglobin 14.5 g/dL (12.0-15.5); Mean Corpuscular HGB CONC 32.7 g/dL (32.0-36.0); Mean Corpuscular Hemoglobin 30.4 pg (27.0-33.0); Mean Corpuscular Volume 92.9 fl (81.6-98.3); Mean Platelet Volume 10.7 fl (7.4-10.4); Platelet Count 229 10x3/uL (150-450); Red Blood Cell (RBC) Count 4.77 10x6/uL (3.90-5.03); White Blood Cell (WBC) Count 8.9 10x3/uL (3.5-10.5)
[2024-02-14 10:45] LABS: ALT (SGPT) 8 U/L (8-55); AST (SGOT) 10 U/L (5-34); Albumin 3.6 g/dL (3.5-5.0); Alkaline Phosphatase 112 U/L (40-110); Anion Gap 15 mmol/L (10-20); BUN (Urea Nitrogen) 20 mg/dL (7.0-18.7); Bilirubin, Total 0.5 mg/dL (0.2-1.2); Calc. Creatinine Clearance 0 mL/min (70-130); Calcium 9.5 mg/dL (7.8-10.44); Carbon Dioxide 23 mmol/L (22-29); Chloride 106 mmol/L (98-107); Estimated GFR 56; Globulin 3.5 g/dL (2.4-3.5); Glucose 85 mg/dL (70-105); Lipase 26 U/L (8-78); Potassium 4.1 mmol/L (3.5-5.1); Protein, Total 7.1 g/dL (6.0-8.3); Sodium 140 mmol/L (136-145)
[2024-02-14 12:06] LABS: Platelet Adequacy Comment Appears Adequate; RBC Morph Comment Within Normal Limits
== END 2024-02-14 12:45 | disposition short-term general hospital (02) ==
LOC: CSHERS 09:05
DX: K92.2 Gastrointestinal hemorrhage, unspecified (principal); F17.290 Nicotine dependence, other tobacco product, uncomplicated
CPT/HCPCS: 80053; 83690; 85025; 86850; 86900; 86901; 93005; C9113; J1170; J2405; S0028

== ENCOUNTER 2024-08-05 18:27 | Emergency (ER) | payer MEDICARE ==
[2024-08-05 19:39] LABS: Clarity Cloudy (Clear); Specific Gravity, Urine 1.015 (1.005-1.030)
[2024-08-05] MEDS ORDERED: Ondansetron PF 4 MG/2 ML Vial ONE (19:39)
[2024-08-05] MEDS ORDERED: Morphine 4 MG/ML VIAL ONE ×2 (19:39→20:46)
[2024-08-05 19:45] LABS: BHCG - Serum Negative (NEGATIVE); Pregs Control Background? CLEAR/WHITE (CLR/WHITE); Pregs Control Bar Appear? YES (CONTROL BAR)
[2024-08-05 19:49] LABS: Bilirubin Unable to Interpret (Negative); Blood, Urine Unable to Interpret (Negative); Glucose, Urine (Dipstick) Unable to Interpret mg/dL (Negative); Ketone, Urine Unable to Interpret mg/dL (Negative); Leukocyte Unable to Interpret (Negative); Nitrite Unable to Interpret (Negative); Protein, Urine (Dipstick) Unable to Interpret mg/dl (Neg-Trace); Urobilinogen UNABLE TO INTERPRET mg/dL (Less than 2)
[2024-08-05 19:50] LABS: CAUTI Indications for Culture Pelvic or flank pain; RBC/HPF None Seen HPF (0-3)
[2024-08-05 19:51] LABS: Bacteria/HPF Rare-Few HPF (None Seen)
[2024-08-05 19:52] LABS: ALT (SGPT) 26 U/L (8-55); AST (SGOT) 18 U/L (5-34); Albumin 3.8 g/dL (3.5-5.0); Alkaline Phosphatase 113 U/L (40-110); Anion Gap 13 mmol/L (10-20); BUN (Urea Nitrogen) 12 mg/dL (7.0-18.7); Bilirubin, Total 0.2 mg/dL (0.2-1.2); Calc. Creatinine Clearance 0 mL/min (70-130); Calcium 9.3 mg/dL (7.8-10.44); Carbon Dioxide 18 mmol/L (22-29); Chloride 112 mmol/L (98-107); Estimated GFR 78; Globulin 3.3 g/dL (2.4-3.5); Glucose 85 mg/dL (70-105); Potassium 3.6 mmol/L (3.5-5.1); Protein, Total 7.1 g/dL (6.0-8.3); Sodium 139 mmol/L (136-145)
[2024-08-05 19:52] LABS: Urine Culture Reflex Yes Yes
[2024-08-05 20:28] LABS: #Basophils 0.07 10x3/uL (0.0-0.2); #Eosinophils 0.28 10x3/uL (0.0-0.5); #Monocytes 0.53 10x3/uL (0.0-1.1); %Basophils 0.9 % (0.0-2.0); %Eosinophils 3.4 % (0.0-6.0); %Lymphocytes 31.2 % (18.0-47.0); %Monocytes 6.5 % (0.0-10.0); %Neutrophils 57.6 % (40.0-75.0); Hematocrit 40.3 % (34.9-44.5); Hemoglobin 13.5 g/dL (12.0-15.5); Mean Corpuscular HGB CONC 33.5 g/dL (32.0-36.0); Mean Corpuscular Hemoglobin 30.2 pg (27.0-33.0); Mean Corpuscular Volume 90.2 fL (81.6-98.3); Mean Platelet Volume 9.9 fL (7.4-10.4); Platelet Count 242 10x3/uL (150-450); RBC Distribution Width 13.6 % (11.5-14.5); Red Blood Cell (RBC) Count 4.47 10x6/uL (3.90-5.03); White Blood Cell (WBC) Count 8.2 10x3/uL (3.5-10.5)
[2024-08-05 20:33] LABS: RBC Morph Comment Within Normal Limits
[2024-08-05 20:35] LABS: Large Platelets SLIGHT (None Seen); Platelet Adequacy Comment Appears Adequate; Platelet Clumps MODERATE
[2024-08-05] MEDS ORDERED: HYDROmorphone 0.5 MG/0.5 ML SYRINGE ONE (22:13)
== END 2024-08-05 23:05 | disposition home or self-care (01) ==
LOC: CSHERS 18:27
DX: R10.84 Generalized abdominal pain (principal); F17.290 Nicotine dependence, other tobacco product, uncomplicated
CPT/HCPCS: 74176; 80053; 81001; 84703; 85025; 87086; J2272; J2405; 36415; 96374; 96375